=== PATIENT | female | born 1990 | race Caucasian/White ===

== ENCOUNTER → 2018-09-29 | Outpatient (CLI) | payer MEDICAID ==
--- NOTE | 2018-09-29 13:59 | Diagnostic Imaging Report ---
INDICATION: survey. TECHNIQUE: Multiple real-time grayscale images were obtained over the gravid uterus. COMPARISON: None. FINDINGS: There is a single live fetus in a cephalic presentation. heart rate was recorded at 153 beats per minute. The placenta is posterior and fundal. Amniotic fluid volume is normal. Cervical length is 5.8 cm. survey demonstrates kidneys, bladder, and stomach to be unremarkable. The brain is unremarkable. There is a four-chamber heart. There is a three-vessel cord with normal insertion. spine is somewhat limited today due to position. Biometrical measurements are as follows: Biparietal 7.22 cm, age 29 weeks 0 days. Head circumference 27.13 cm, age 29 weeks 5 days. Abdominal circumference 26.63 cm, age 30 weeks 6 days. Femur length 6.02 cm, age 31 weeks 3 days. Sonographic estimate age: 30 weeks 2 days. Sonographic estimated date of delivery: 12/06/18. Estimated Weight: 1616 gm (+/- 236 gm). LMP percentile: 36%. heart rate: 153 beats per minute. number: 1 of 1. IMPRESSION: Single live IUP at 30 weeks 2 days gestational age. Estimated date of confinement sonographically is 12/06/2018. survey is unremarkable, although spine is somewhat limited on today's study and followup could be performed. Dictated by: Dictated on workstation # [id number]
== END ==
LOC: RAD 11:01
PROVIDERS: ATTEND Obstetrics & Gynecology
DX: Z36.89 Encounter for other specified antenatal screening (principal); Z3A.30 30 weeks gestation of pregnancy
CPT/HCPCS: 76805

== ENCOUNTER 2018-12-09 20:05 | Inpatient (IN) | payer MEDICAID ==
[~2018-12-09] VITALS: Ht 170.2 cm; Wt 83.0 kg
--- NOTE | 2018-12-09 20:04 | NUR ---
RAFAEL FLETCHER presented to unit via AMBULATION from ED/HOME, accompanied by SO, with c/o LABOR. RAFAEL FLETCHER weighed, gowned, voided, and to bed. EFHM and TOCO applied, VS taken. RAFAEL FLETCHER oriented to bed controls, call light, TV, heat, and A/C controls.
[2018-12-09 20:20] VITALS: BP 130/77
[2018-12-09] MEDS ORDERED: LACTATED RINGERS 1,000 ML IV ONE (21:06)
[2018-12-09 21:10] LABS: BASOPHILS % (AUTO) 0 % (0-10); EOSINOPHILS # (AUTO) 0.1 10^3/uL (0.0-0.3); EOSINOPHILS % (AUTO) 1 % (0-10); HEMATOCRIT 40 % (35-52); HEMOGLOBIN 13.5 G/DL (11.5-16.0); LYMPHOCYTES # (AUTO) 1.9 X 10^3 (1.0-4.0); LYMPHOCYTES % (AUTO) 14 % (12-44); MEAN CORPUSCULAR HEMOGLOBIN 31 PG (25-34); MEAN CORPUSCULAR HGB CONC 34 G/DL (32-36); MEAN CORPUSCULAR VOLUME 92 FL (80-99); MEAN PLATELET VOLUME 10.5 FL (7.4-10.4); MONOCYTES # (AUTO) 1.2 X 10^3 (0.0-1.0); MONOCYTES % (AUTO) 9 % (0-12); NEUTROPHILS # (AUTO) 10.2 X 10^3 (1.8-7.8); NEUTROPHILS % (AUTO) 76 % (42-75); PLATELET COUNT 277 10^3/uL (130-400); RED CELL DISTRIBUTION WIDTH 12.5 % (10.0-14.5); WHITE BLOOD COUNT 13.5 10^3/uL (4.3-11.0)
[2018-12-09 21:10] LABS: BILIRUBIN,URINE NEGATIVE (NEGATIVE); CLARITY,URINE CLEAR; COLOR,URINE YELLOW; GLUCOSE, URINE (UA) NEGATIVE (NEGATIVE); KETONES,URINE NEGATIVE (NEGATIVE); LEUKOCYTE ESTERASE ,URINE 3+ (NEGATIVE); NITRITE,URINE NEGATIVE (NEGATIVE); PH,URINE 6.5 (5-9); PROTEIN,URINE NEGATIVE (NEGATIVE); UROBILINOGEN,URINE NORMAL (NORMAL)
[2018-12-09] MEDS ORDERED: LACTATED RINGERS 1,000 ML IV SCH (21:15)
[2018-12-09 21:22] LABS: BACTERIA,URINE FEW /HPF
[2018-12-09] MEDS ORDERED: MINERAL OIL CONCENTRATE 99.9% 15 ML UDC ONE (21:40)
[2018-12-09] MEDS ORDERED: OXYTOCIN/NORMAL SALINE 500 ML IV ONE (21:40)
[2018-12-09 22:20] VITALS: BP 126/76
[2018-12-09 22:56] VITALS: BP 107/62
--- NOTE | 2018-12-09 22:56 | NUR ---
ff u/0. minimal rubra.
--- NOTE | 2018-12-09 22:58 | History & Physical-OB ---
OB - Chief Complaint & HPI Date/Time Date of Admission: Date of Admission: Dec 09, 2018 at 20:20 Date seen by a Provider: Dec 09, 2018 Time Seen by a Provider: 22:30 Chief Complaint/History OB-Reason for Admission/Chief: Onset of Labor Hx : 3 Hx Para: 2 Expected Date of Delivery: Dec 29, 2018 Gestational Age in Weeks: 41 Admission Nurse Assessment Rev: Yes History of Labs A+/- Rub I VDRL NR GBS - HIV - HBSAg- Hep C - Other Patient presented with complaints of contractions. She has not had ROM. She would like to have minimal monitoring. Will be admitted for labor and intermittent monitoring. did agree to a heplock and labs. Will accept Pitocin or Misoprostol if bleeding after delivery. no pain medications or epidural. Brought birthing ball and will allow her to delivery as she chooses within reason. Allergies and Home Medications Allergies Coded Allergies: No Known Drug Allergies (Unverified , 12/09/18) Patient Home Medication List Home Medication List Reviewed: Yes OB - History Hx of Present Care: Yes Ultrasounds: Normal mid trimester US Obstetrical Complications: None Medical Complications: None, Other (did have abnormal 1 hour glucola but 3 hours was wnl) Information Induced Hypertension: No Maternal Gestational Diabetes: No Hemorrhage: No Obstetrical History Hx : 3 Hx Para: 2 Hx # Term Pregnancies: 2 Hx # Pregnancies: 0 Number of Living Children: 2 Hx Multiple Gestation: No Hx Ectopic : No Hx Stillbirth: No Hx Complication: No Hx Induced Hypertens: No Hx Maternal Gestational Diabet: No Hx Hemorrhage: No Delivery History Hx Dystocia: No Hx Forceps Assisted Delivery: No Hx Vacuum Extraction Assisted: No Hx Placenta Abnormality: No Hx Distress: No Hx Large For Gestational Age I: No Hx Small for Gestational Age I: No Hx Section: No Hx Vaginal Delivery Post C-Sec: No Hx Blood Disorders: No Adverse Rxn to Tranfusion: No Patient Past Medical History NC Social History/Family History HIV/AIDS: No Recent Infectious Disease Expo: No Sexually Transmitted Disease: No Alcohol Use: Denies Use Recreational Drug Use: No Smoking Cessation: Never smoker Immunizations Tetanus Booster (TDap): Unknown (declined TDaP) Rubella: immune RPR/VDRL: Negative GBS Status: Negative HBsAG: Negative OB - Admission Exam Physical Exam HEENT: NCAT Heart: Rhythm Normal Lungs: Clear Abdomen: Gravid Extremities: Normal Cervical Dilatation: 9cm Effacement: 100% Station: -1 Membranes: Intact Amniotic Fluid: Thick Meconium (Ruptured just before pushing) Heart Rate: 140's Accelerations: Accelerations Present Decelerations: No Decelerations Short Term Variability: Present Group Home Variability: Average (6-25) Contractions on Admission: < 5 Minutes Apart Labs Laboratory Tests Test 12/09/18 20:30 12/09/18 21:00 Range/Units Urine Color YELLOW Urine Clarity CLEAR Urine pH 6.5 5-9 Urine Specific [place] 1.020 1.016-1.022 Urine Protein NEGATIVE NEGATIVE Urine Glucose (UA) NEGATIVE NEGATIVE Urine Ketones NEGATIVE NEGATIVE Urine Nitrite NEGATIVE NEGATIVE Urine Bilirubin NEGATIVE NEGATIVE Urine Urobilinogen NORMAL NORMAL MG/DL Urine Leukocyte Esterase 3+ H NEGATIVE Urine RBC (Auto) NEGATIVE NEGATIVE Urine RBC NONE /HPF Urine WBC 2-5 /HPF Urine Squamous Epithelial Cells 5-10 /HPF Urine Crystals NONE /LPF Urine Bacteria FEW H /HPF Urine Casts NONE /LPF Urine Mucus SMALL H /LPF Urine Culture Indicated NO White Blood Count 13.5 H 4.3-11.0 10^3/uL Red Blood Count 4.34 L 4.35-5.85 10^6/uL Hemoglobin 13.5 11.5-16.0 G/DL Hematocrit 40 35-52 % Mean Corpuscular Volume 92 80-99 FL Mean Corpuscular Hemoglobin 31 25-34 PG Mean Corpuscular Hemoglobin Concent 34 32-36 G/DL Red Cell Distribution Width 12.5 10.0-14.5 % Platelet Count 277 130-400 10^3/uL Mean Platelet Volume 10.5 H 7.4-10.4 FL Neutrophils (%) (Auto) 76 H 42-75 % Lymphocytes (%) (Auto) 14 12-44 % Monocytes (%) (Auto) 9 0-12 % Eosinophils (%) (Auto) 1 0-10 % Basophils (%) (Auto) 0 0-10 % Neutrophils # (Auto) 10.2 H 1.8-7.8 X 10^3 Lymphocytes # (Auto) 1.9 1.0-4.0 X 10^3 Monocytes # (Auto) 1.2 H 0.0-1.0 X 10^3 Eosinophils # (Auto) 0.1 0.0-0.3 10^3/uL Basophils # (Auto) 0.0 0.0-0.1 10^3/uL OB - Assessment/Plan/Diagnosis Assessment Assessment: active labor Admission Dx Labor Admission Status: Inpatient Order (span 2 midnights) Reason for Inpatient Admission: LAbor Plan Plan: Expectant Management JOHN BOURNE DO Dec 09, 2018 22:58
[2018-12-09] MEDS ORDERED: ACETAMINOPHEN 500 MG TAB (TYLENOL) PO SCH (23:15)
[2018-12-09] MEDS ORDERED: WITCH HAZEL(TUCKS) 40 EA JAR TOP PRN (23:15)
[2018-12-09] MEDS ORDERED: DIBUCAINE (NUPERCAINAL) 1% OINT 30 GM TOP PRN (23:15)
[2018-12-09] MEDS ORDERED: BENZOCAINE/MENTHOL (DERMOPLAST) 56 ML CAN TP PRN (23:15)
[2018-12-09] MEDS ORDERED: IBUPROFEN 600 MG (MOTRIN) TAB PO SCH (23:15)
[2018-12-09] MEDS ORDERED: TETANUS,DIPTH,PERTUSS P/F (BOOSTRIX) 0.5 ML VIAL IM ONE (23:15)
[2018-12-09] MEDS ORDERED: MEASLES,MUMPS,RUBELLA 1 EA INJ SQ ONE (23:15)
--- NOTE | 2018-12-09 23:15 | NUR ---
Infant to mom's arms. skin to skin on l side. Minimal staff assist.
--- NOTE | 2018-12-09 23:20 | OB Labor & Delivery Record ---
Vag Delivery Note Vag Delivery Note Date of Delivery: 12/09/18 Preoperative Diagnosis: Julien Maloney is a 28 /Para 3 / 2,Gestational Age 41 weeks in labor Postoperative Diagnosis: Same, meconium, post dates delivery Surgeon: JOHN BOURNE Anesthesia: none Delivery Type: vaginal Findings: Viable female , apgars pending, weight pending Lacerations: first degree and right periurethral abrasion Intact placenta with 3 vessel cord. No nuchal cord, body cord or shoulder dystocia Estimated Blood Loss: 150 ml Complications: None Condition: Stable Description of Procedure: The patient is a 28 year old female who presented in active labor at 41 weeks. . She was admitted and informed consent was obtained. Her labor course was remarkable for intermittent monitoring and pushing at will. She delivered in the knee chest position and had SROM with thick meconium just prior to delivery. She progressed to complete dilatation and began to push. She was then set up for delivery. The infant's head was delivered atraumatically in the OA position. The shoulders and remainder of the 's body were then delivered without difficulty. Upon delivery, the head was held below the level of the perineum and the mouth and nares were bulb suctioned. The cord was doubly clamped and cut and the infant was handed off to the pediatric staff. An intact placenta with 3-vessel cord delivered via [place] and there was found to be minimal bleeding.~ Vigorous fundal massage was performed and the fundus was found to be firm. Examination of the vagina and perineum revealed a 1st degree laceration that was not repaired. Following the delivery, sponge, instrument and needle counts were correct. Mom and baby were both in stable condition in the labor suite. Vitals - Labs Labs Laboratory Tests 12/09/18 20:30: Urine Color YELLOW, Urine Clarity CLEAR, Urine pH 6.5, Urine Specific [place] 1.020, Urine Protein NEGATIVE, Urine Glucose (UA) NEGATIVE, Urine Ketones NEGATIVE, Urine Nitrite NEGATIVE, Urine Bilirubin NEGATIVE, Urine Urobilinogen NORMAL, Urine Leukocyte Esterase 3+H, Urine RBC (Auto) NEGATIVE, Urine RBC NONE , Urine WBC 2-5, Urine Squamous Epithelial Cells 5-10, Urine Crystals NONE, Urine Bacteria FEWH, Urine Casts NONE, Urine Mucus SMALLH, Urine Culture Indicated NO 12/09/18 21:00: White Blood Count 13.5H, Red Blood Count 4.34L, Hemoglobin 13.5, Hematocrit 40, Mean Corpuscular Volume 92, Mean Corpuscular Hemoglobin 31, Mean Corpuscular Hemoglobin Concent 34, Red Cell Distribution Width 12.5, Platelet Count 277, Mean Platelet Volume 10.5H, Neutrophils (%) (Auto) 76H, Lymphocytes (%) (Auto) 14, Monocytes (%) (Auto) 9, Eosinophils (%) (Auto) 1, Basophils (%) (Auto) 0, Neutrophils # (Auto) 10.2H, Lymphocytes # (Auto) 1.9, Monocytes # (Auto) 1.2H, Eosinophils # (Auto) 0.1, Basophils # (Auto) 0.0 JOHN BOURNE DO Dec 09, 2018 23:20
[2018-12-09 23:22] VITALS: BP 121/68
--- NOTE | 2018-12-09 23:22 | NUR ---
ff u/0. moderate rubra.
[2018-12-09 23:42] VITALS: BP 112/64
--- NOTE | 2018-12-09 23:42 | NUR ---
ff u/0. moderate rubra. Pt continues . denies needs.
[2018-12-10] VITALS (7 sets, daily range): BP systolic 104–119; BP diastolic 59–75
--- NOTE | 2018-12-10 00:11 | NUR ---
ff u/0. Moderate rubra. Requesting baby bath. to nsy for bath at this time. [place] tray given to mom.
--- NOTE | 2018-12-10 00:49 | NUR ---
Pt finishing food. Denies c/o. fundus boggy. Massaged to firm at u/0. Moderate rubra with clots. Daniela care done. v pad changed. panties on. Pt up to wc, moved to room 309 accompanied by so and infant. oriented to room. Pt up walking in room. dnies needs at this time.
--- NOTE | 2018-12-10 01:15 | NUR ---
Pt up in br doing albin care. albin bottle given. Pt states that started to breastfeed infant and had a gush of blood, so got up to br. Denies clots. Will monitor.
[2018-12-10] MEDS ORDERED: CATHETER FLUSH 10 ML SYR IV SCH (06:00)
[2018-12-10 06:42] LABS: BASOPHILS % (AUTO) 0 % (0-10); EOSINOPHILS % (AUTO) 0 % (0-10); HEMATOCRIT 39 % (35-52); LYMPHOCYTES % (AUTO) 13 % (12-44); MEAN CORPUSCULAR HEMOGLOBIN 31 PG (25-34); MEAN CORPUSCULAR HGB CONC 34 G/DL (32-36); MEAN CORPUSCULAR VOLUME 92 FL (80-99); MEAN PLATELET VOLUME 10.9 FL (7.4-10.4); MONOCYTES # (AUTO) 1.1 X 10^3 (0.0-1.0); MONOCYTES % (AUTO) 8 % (0-12); NEUTROPHILS # (AUTO) 11.8 X 10^3 (1.8-7.8); NEUTROPHILS % (AUTO) 79 % (42-75); PLATELET COUNT 253 10^3/uL (130-400); RED CELL DISTRIBUTION WIDTH 12.5 % (10.0-14.5); WHITE BLOOD COUNT 14.9 10^3/uL (4.3-11.0)
[2018-12-10] MEDS ORDERED: FLU QUADRIvalent (5+ YOA) 2018-2019 (AFLURIA) 0.5 ML IM ONE (07:30)
--- NOTE | 2018-12-10 09:10 | Postpartum Progress Note ---
Note Note Day # 1 s/p Subjective: Patient is without complaints. Ambulating, voiding. Tolerating a regular diet without nausea or vomiting. Normal lochia. Pain is well controlled with oral pain medications. breast feeding. Objective: Laboratory Tests Test 12/09/18 20:30 12/09/18 21:00 12/10/18 06:02 Range/Units Urine Color YELLOW Urine Clarity CLEAR Urine pH 6.5 5-9 Urine Specific [place] 1.020 1.016-1.022 Urine Protein NEGATIVE NEGATIVE Urine Glucose (UA) NEGATIVE NEGATIVE Urine Ketones NEGATIVE NEGATIVE Urine Nitrite NEGATIVE NEGATIVE Urine Bilirubin NEGATIVE NEGATIVE Urine Urobilinogen NORMAL NORMAL MG/DL Urine Leukocyte Esterase 3+ H NEGATIVE Urine RBC (Auto) NEGATIVE NEGATIVE Urine RBC NONE /HPF Urine WBC 2-5 /HPF Urine Squamous Epithelial Cells 5-10 /HPF Urine Crystals NONE /LPF Urine Bacteria FEW H /HPF Urine Casts NONE /LPF Urine Mucus SMALL H /LPF Urine Culture Indicated NO White Blood Count 13.5 H 14.9 H 4.3-11.0 10^3/uL Red Blood Count 4.34 L 4.21 L 4.35-5.85 10^6/uL Hemoglobin 13.5 13.0 11.5-16.0 G/DL Hematocrit 40 39 35-52 % Mean Corpuscular Volume 92 92 80-99 FL Mean Corpuscular Hemoglobin 31 31 25-34 PG Mean Corpuscular Hemoglobin Concent 34 34 32-36 G/DL Red Cell Distribution Width 12.5 12.5 10.0-14.5 % Platelet Count 277 253 130-400 10^3/uL Mean Platelet Volume 10.5 H 10.9 H 7.4-10.4 FL Neutrophils (%) (Auto) 76 H 79 H 42-75 % Lymphocytes (%) (Auto) 14 13 12-44 % Monocytes (%) (Auto) 9 8 0-12 % Eosinophils (%) (Auto) 1 0 0-10 % Basophils (%) (Auto) 0 0 0-10 % Neutrophils # (Auto) 10.2 H 11.8 H 1.8-7.8 X 10^3 Lymphocytes # (Auto) 1.9 2.0 1.0-4.0 X 10^3 Monocytes # (Auto) 1.2 H 1.1 H 0.0-1.0 X 10^3 Eosinophils # (Auto) 0.1 0.0 0.0-0.3 10^3/uL Basophils # (Auto) 0.0 0.0 0.0-0.1 10^3/uL Physical Exam: General - Alert and oriented, no apparent distress Abdomen - Soft, appropriately tender to palpation, non-distended, fundus firm at umbilicus Extremities - no edema, negative Rick's bilaterally Assessment: 1. post- day # 1, status post spontaneous vaginal delivery. Recovering well, hemodynamically stable Plan: Routine care. Encourage breast feeding. Encourage ambulation. Ferrous sulfate supplementation. Plan for discharge tomorrow Vitals - Labs Vital Signs - I&O Vital Signs Date Time Temp Pulse Resp B/P (MAP) Pulse Ox O2 Delivery O2 Flow Rate FiO2 12/10/18 04:02 97.8 81 104/65 (78) Room Air 12/10/18 00:49 97.8 83 18 119/65 (83) Room Air 12/10/18 00:11 18 114/59 (77) Room Air 12/09/18 23:42 97.1 71 18 112/64 (80) Room Air 12/09/18 23:22 69 18 121/68 (85) Room Air 12/09/18 22:56 67 18 107/62 (77) Room Air 12/09/18 22:20 97.0 90 18 126/76 (93) Room Air 12/09/18 20:20 98.4 75 18 130/77 (94) I & O 12/10/18 07:00 Intake Total 900 ml Balance 900 ml Labs Laboratory Tests 12/09/18 20:30: Urine Color YELLOW, Urine Clarity CLEAR, Urine pH 6.5, Urine Specific [place] 1.020, Urine Protein NEGATIVE, Urine Glucose (UA) NEGATIVE, Urine Ketones NEGATIVE, Urine Nitrite NEGATIVE, Urine Bilirubin NEGATIVE, Urine Urobilinogen NORMAL, Urine Leukocyte Esterase 3+H, Urine RBC (Auto) NEGATIVE, Urine RBC NONE , Urine WBC 2-5, Urine Squamous Epithelial Cells 5-10, Urine Crystals NONE, Urine Bacteria FEWH, Urine Casts NONE, Urine Mucus SMALLH, Urine Culture Indicated NO 12/09/18 21:00: White Blood Count 13.5H, Red Blood Count 4.34L, Hemoglobin 13.5, Hematocrit 40, Mean Corpuscular Volume 92, Mean Corpuscular Hemoglobin 31, Mean Corpuscular Hemoglobin Concent 34, Red Cell Distribution Width 12.5, Platelet Count 277, Mean Platelet Volume 10.5H, Neutrophils (%) (Auto) 76H, Lymphocytes (%) (Auto) 14, Monocytes (%) (Auto) 9, Eosinophils (%) (Auto) 1, Basophils (%) (Auto) 0, Neutrophils # (Auto) 10.2H, Lymphocytes # (Auto) 1.9, Monocytes # (Auto) 1.2H, Eosinophils # (Auto) 0.1, Basophils # (Auto) 0.0 12/10/18 06:02: White Blood Count 14.9H, Red Blood Count 4.21L, Hemoglobin 13.0, Hematocrit 39, Mean Corpuscular Volume 92, Mean Corpuscular Hemoglobin 31, Mean Corpuscular Hemoglobin Concent 34, Red Cell Distribution Width 12.5, Platelet Count 253, Mean Platelet Volume 10.9H, Neutrophils (%) (Auto) 79H, Lymphocytes (%) (Auto) 13, Monocytes (%) (Auto) 8, Eosinophils (%) (Auto) 0, Basophils (%) (Auto) 0, Neutrophils # (Auto) 11.8H, Lymphocytes # (Auto) 2.0, Monocytes # (Auto) 1.1H, Eosinophils # (Auto) 0.0, Basophils # (Auto) 0.0 JOHN BOURNE DO Dec 10, 2018 09:10
--- NOTE | 2018-12-10 09:40 | NUR ---
Dr Ordonez rounded.
[2018-12-10] MEDS: DOCUSATE SODIUM 100 MG (COLACE) CAP PO SCH ×2 (16:00→20:26)
[2018-12-10] MEDS: FERROUS SULF 325 MG (IRON) TAB PO SCH (16:00)
[2018-12-10] MEDS: PRENATAL VITAMIN 1 EA TAB PO SCH (16:13)
[2018-12-11] MEDS: D5 LR IV SOLUTION 1,000 ML IV SCH (01:37)
[2018-12-11 04:00] VITALS: BP 109/71
[2018-12-11 07:42] VITALS: BP 106/73
[2018-12-11] MEDS: PRENATAL VITAMIN 1 EA TAB PO SCH ×2 (07:45→07:50)
[2018-12-11] MEDS: DOCUSATE SODIUM 100 MG (COLACE) CAP PO SCH (07:50)
[2018-12-11] MEDS: FERROUS SULF 325 MG (IRON) TAB PO SCH (08:42)
--- NOTE | 2018-12-11 11:56 | Physician Progress Note ---
Progress Note Assessment/Plan Date Seen by Provider: Dec 11, 2018 Time Seen by Provider: 11:55 Events since last exam Routine post . Ready to go home. Breast feeding Assessment/Plan ppd #2 s/p Vitals Last set of Vitals Signs Vital Signs Date Time Temp Pulse Resp B/P (MAP) Pulse Ox O2 Delivery O2 Flow Rate FiO2 12/11/18 07:45 Room Air 12/11/18 07:42 98.4 84 18 106/73 (84) 98 I&O I&O Intake and Output 12/11/18 00:00 Intake Total 1122 ml Balance 1122 ml Intake Oral 1122 ml # Voids 4 Clinical Quality Measures DVT/VTE Risk/Contraindication: Risk Factor Score Per Nursin RFS Level Per Nursing on Admit: 1=Low/No VTE PPX JOHN BOURNE DO Dec 11, 2018 11:56
[2018-12-11] MEDS ORDERED: IBUP-844 PO (11:57)
[2018-12-11] MEDS ORDERED: ACET-77 PO (11:57)
--- NOTE | 2018-12-11 11:58 | Discharge Inst-Women's Service ---
Discharge Inst-Women's Serv Depart Medication/Instructions New, Converted or Re-Newed RX: RX on Chart Final Diagnosis vaginal delivery Consults/Follow Up Additional Follow Up: Yes Activity Activity: Activity as Tolerated Driving Instructions: You May Drive NO SMOKING: NO SMOKING Nothing Inside Vagina: No Douching, No [place], No Tampons Diet Discharge Diet: No Restrictions Symptoms to Report to : Bleeding Excessive, Pain Increased, Fever Over 101 Degrees F, Vaginal Bleeding Increase, Cramps in Feet or Legs, Vaginal Discharge Foul For Any Problems or Questions: Contact Your Physician JOHN BOURNE DO Dec 11, 2018 11:58
[2018-12-11 12:01] VITALS: BP 116/77
--- NOTE | 2018-12-11 12:55 | NUR ---
Discharge instructions provided and reviewed. Pt verbalizes understanding. Papers signed. No questions or concerns voiced at this time.
--- NOTE | 2018-12-11 13:15 | NUR ---
Pt discharge from -309 to personal auto via ambulations. Accompanied via Domo Greene RN. In stable condition. No s/s of distressed.
== END 2018-12-11 13:15 | disposition home or self-care (01) | DRG 807 ==
LOC: LDRP 20:05 → WSo 20:05 → LDRP 20:20
PROVIDERS: ADMIT Obstetrics & Gynecology; ATTEND Obstetrics & Gynecology
PROC: 10E0XZZ Delivery of Products of Conception, External Approach (ICD-10-PCS; principal; 2018-12-09)
DX: O48.0 Post-term pregnancy (principal); O77.0 Labor and delivery complicated by meconium in amniotic fluid; Z3A.41 41 weeks gestation of pregnancy; Z37.0 Single live birth
CPT/HCPCS: 36415; 81000; 85025; 86850; 86900; 86901; 99212